=== PATIENT | female | born 1995 | race African-American/Black ===

== ENCOUNTER 2021-11-05 23:21 | Emergency (ER) | payer BC ==
[~2021-11-05] VITALS: Ht 157.5 cm; Wt 40.8 kg
[2021-11-05 23:38] VITALS: BP_SYST 131
[2021-11-06] MEDS ORDERED: NORMAL SALINE 5 ML DISP.SYRIN IVF SCH (02:00)
[2021-11-06 02:11] LABS: BILIRUBIN,URINE NEGATIVE (NEGATIVE); BLOOD, URINE NEGATIVE (NEGATIVE); CLARITY/URINE CLEAR (CLEAR); COLOR,URINE YELLOW (YELLOW); GLUCOSE,URINE NEGATIVE (NEGATIVE); KETONES,URINE NEGATIVE (NEGATIVE); LEUKOCYTE ESTERASE ,URINE NEGATIVE (NEGATIVE); NITRITE, URINE NEGATIVE (NEGATIVE); PROTEIN URINE NEGATIVE (NEGATIVE); UROBILINOGEN,URINE 0.2 (0.2-1.0)
[2021-11-06 02:14] LABS: BASOPHILS # (AUTO) 0.1 K/uL (0.0-0.2); BASOPHILS % (AUTO) 0.7 % (0.0-2.0); EOSINOPHILS # (AUTO) 0.2 K/uL (0.0-0.4); EOSINOPHILS % (AUTO) 2.2 % (0.0-4.0); HEMATOCRIT 40.5 % (36-48); HEMOGLOBIN 13.2 g/dL (12.0-16.0); LYMPHOCYTES # (AUTO) 3.2 K/uL (1.0-5.5); LYMPHOCYTES % (AUTO) 39.8 % (20.5-51.5); MEAN CORPUSCULAR HEMOGLOBIN 31 pg (27-31); MEAN CORPUSCULAR HGB CONC 33 % (32-36); MEAN CORPUSCULAR VOLUME 94 fL (79.0-98.0); MONOCYTES # (AUTO) 0.4 K/uL (0.0-1.0); NEUTROPHILS # (AUTO) 4.2 K/uL (1.8-7.7); NEUTROPHILS % (AUTO) 52.3 % (40.0-70.0); PLATELET COUNT (AUTO) 270 K/uL (130-430); RED CELL DISTRIBUTION WIDTH 14.4 % (9.0-15.0); WHITE BLOOD COUNT (AUTO) 7.9 K/uL (4.8-10.8)
[2021-11-06 02:43] LABS: CALCIUM 8.8 mg/dL (8.4-11.0); CREATININE 0.68 mg/dL (0.55-1.30); POTASSIUM 3.8 mmol/L (3.5-5.1)
[2021-11-06 02:47] LABS: ALBUMIN 4.6 g/dL (3.4-4.8); TOTAL BILIRUBIN 0.4 mg/dL (0.0-1.0)
[2021-11-06] MEDS ORDERED: cefTRIAXone 1 GM VIAL ONE (03:44)
[2021-11-06] MEDS ORDERED: AZITHROMYCIN 250 MG TABLET PO ONE (03:45)
[2021-11-06] MEDS ORDERED: cefTRIAXone 0.5 GM in D5W 50 ML IV ONE (03:45)
[2021-11-06] MEDS ORDERED: ACET1TAB23 PO (05:02)
[2021-11-06] MEDS ORDERED: NAPR-1169 PO (05:02)
[2021-11-06] MEDS ORDERED: CLEVAG VG (05:02)
[2021-11-06 05:09] VITALS: BP_SYST 115
[2021-11-08 01:06] LABS: CHLAMYDIA TRACHOMATIS NAA Negative (Negative); NEISSERIA GONORRHOEAE NAA Negative (Negative)
== END 2021-11-06 05:07 | disposition home or self-care (01) ==
LOC: SED 23:21
DX: N76.0 Acute vaginitis (principal); Z79.899 Other long term (current) drug therapy
CPT/HCPCS: 36415; 80053; 81003; 81025; 85025; 87210; 87491; 87591; 96365; 99284; J0696; Q0144

== ENCOUNTER 2022-03-11 16:35 | Emergency (ER) | payer BC ==
[~2022-03-11 16:35] MED LIST: CLEVAG VG; NAPR-1169 PO
== END 2022-03-11 17:45 | disposition left against medical advice (07) ==
LOC: SED 16:35
DX: R07.89 Other chest pain (principal); Z53.21 Procedure and treatment not carried out due to patient leaving prior to being seen by health care provider